=== PATIENT | female | born 1960 | race Two or more races ===

== ENCOUNTER 2024-05-25 22:50 | Emergency (ER) | payer OTHER ==
[~2024-05-25] VITALS: Ht 154.9 cm; Wt 93.9 kg
[2024-05-25] MEDS ORDERED: MOUNJARO2.5 MG/0.5 SQ (23:12)
[2024-05-25] MEDS ORDERED: SINGULAIR10 MG PO (23:12)
[2024-05-25] MEDS ORDERED: HORIZANT300 MG PO (23:12)
[2024-05-25] MEDS ORDERED: PROTONIX40 MG PO (23:13)
[2024-05-25] MEDS ORDERED: PEPCID AC20 MG (23:13)
[2024-05-26] MEDS ORDERED: PROMETHAZINE HCL 50 MG/ML AMPUL IM STA (00:13)
[2024-05-26] MEDS ORDERED: 0.9 % SODIUM CHLORIDE 1,000 ML IV ONE (00:15)
[2024-05-26] MEDS ORDERED: PROMETHAZINE HCL 50 MG/ML AMPUL IM ONE (00:49)
[2024-05-26] MEDS ORDERED: BARIUM SULFATE 450 ML ORAL.SUSP PO ONE (00:58)
[2024-05-26] MEDS ORDERED: METRONIDAZOLE/SODIUM CHLORIDE 500 MG/100 ML PIGGYBACK IV ONE (02:54)
[2024-05-26] MEDS ORDERED: OxyCODONE HCL/APAP UD (PERCOCET) PO STA (05:00)
[2024-05-26 06:37] LABS: ALBUMIN 3.9 gm/dL (3.4-5.0); BILIRUBIN TOTAL 0.69 mg/dL (0.3-1.2); CALCIUM 10.3 mg/dL (8.5-10.1); CREATININE SERUM 0.88 mg/dL (0.55-1.02); GFR 64.49; GLOBULINA 4.3 G/DL (2.4-3.5); TOTAL PROTEIN 8.2 gm/dL (6.4-8.2)
[2024-05-26] MEDS ORDERED: LACTULOSE 20 G/30 ML BLIST.PACK PO STA (06:38)
[2024-05-26] MEDS ORDERED: MINERAL OIL 30 ML BLIST.PACK ONE (07:05)
[2024-05-26] MEDS ORDERED: LACTULOSE 20 G/30 ML BLIST.PACK ONE (07:06)
[2024-05-26 07:19] LABS: HEMATOCRIT 40.9 % (36.0-45.00); MEAN CELL VOLUME 90.7 fL (80.00-100.00); MEAN CORPUSCULAR HEMOGLOBIN 31.1 pg (27.00-32.0); MEAN CORPUSCULAR HGB CONC 34.2 g/dl (32.0-36.0); PLATELET COUNT 300 K/uL (150-450); RED BLOOD COUNT 4.51 M/uL (4.00-6.00); RED CELL DISTRIBUTION WIDTH 13.2 % (11.5-14.5)
[2024-05-26] MEDS ORDERED: LEVSIN/SL0.125 MG SL ×2 (07:42)
[2024-05-26] MEDS ORDERED: POLY119PG PO (07:42)
[2024-05-26 07:43] VITALS: BP 124/77; O2SAT 97
[2024-05-26 10:59] LABS: INR 1.04; PARTIAL THROMBOPLASTIN TIME 28.2 SECONDS (22.0-34.0); PROTHROMBIN TIME 11.3 SECONDS (9.0-11.5)
[2024-05-26 11:09] LABS: PH,URINE 5.5 (5.0-8.0); URINE APPEARANCE Clear; URINE BILIRRUBIN Negative (NEGATIVE); URINE BLOOD Trace; URINE COLOR Yellow; URINE EPITHELIAL CELLS 1.8 uL (0.0-38.8); URINE GLUCOSE Negative (NEGATIVE); URINE KETONE 15 (NEGATIVE); URINE LEUKOCYTE Negative; URINE NITRATE Negative; URINE PROTEIN Negative (NEGATIVE); URINE UROBILINOGEN 0.2 E.U./dl; URINE WBC 3.4 uL (0.0-23.2)
[2024-05-26 11:11] LABS: URINE BACTERIA 2.4 uL (0.0-1933); URINE CAST 0.14 uL (0.0-1.40)
== END 2024-05-26 07:50 ==
LOC: ER 22:53
PROVIDERS: General Practice
DX: K59.00 Constipation, unspecified (principal); Z88.6 Allergy status to analgesic agent; Z88.0 Allergy status to penicillin; Z88.8 Allergy status to other drugs, medicaments and biological substances; Z87.09 Personal history of other diseases of the respiratory system